=== PATIENT | female | born 1940 | race Caucasian/White ===

== ENCOUNTER 2022-01-23 15:12 | Inpatient (IN) ==
[2022-01-23 16:24] LABS: Basophils # 0.1 K/mcL (0.0-0.2); Basophils % 2.1 %; Eosinophils # 0.3 K/mcL (0.0-0.6); Eosinophils % 4.8 %; Hematocrit 37.1 % (35.3-44.9); Hemoglobin 11.9 g/dL (11.5-15.4); Immature Granulocytes % 0.2 % (0-4); Lymphocytes % 38.9 %; Mean Corpuscular HGB Conc 32.1 g/dL (31.6-35.5); Mean Corpuscular Hemoglobin 32.1 pg (28.0-33.3); Mean Platelet Volume 9.6 fL (9.4-12.4); Monocytes # 0.6 K/mcL (0.0-1.3); Monocytes % 10.9 %; Neutrophils # 2.3 K/mcL (1.6-8.9); Platelet Count 174 K/mcL (140-400); Red Blood Count 3.71 M/mcL (3.82-4.97); Red Cell Distribution Width 13.4 % (11.5-14.5); Segmented Neutrophils % 43.1 %; White Blood Count 5.2 K/mcL (4.3-11.1)
[2022-01-23 16:45] LABS: Calcium 13.8 mg/dL (8.6-10.3); Potassium 3.8 mEq/L (3.5-5.1); Troponin I 0.03 ng/mL (< 0.04)
[2022-01-23] MEDS ORDERED: 0.9 % Sodium Chloride 1,000 ML IVC ONE (17:17)
[2022-01-23 18:32] LABS: Albumin 3.3 g/dL (3.5-5.7); Albumin/Globulin Ratio 0.9 (1.1-2.2); Bilirubin,Direct 0.2 mg/dL (0.0-0.2); Bilirubin,Indirect 0.8 mg/dL (0.0-1.0); Globulin 3.6 g/dL (2.4-3.5); Magnesium 1.6 mg/dL (1.6-2.6); Phosphorous 2.6 mg/dL (2.7-4.5); Thyroid Stimulating Hormone 3.593 mcIU/mL (0.340-5.600); Total Protein 6.9 g/dL (6.4-8.9)
[2022-01-23 18:39] LABS: Bilirubin,Urine Negative (Negative); Blood,Urine Negative (Negative); Clarity,Urine Clear (Clear); Color,Urine Light-Yellow (Yellow); Glucose,Urine (UA) Normal (Normal); Hyaline Casts,Urine Few per lpf (None Seen); Ketones,Urine Negative (Negative); Leukocyte Esterase,Urine Trace (Negative); Mucus,Urine Few per lpf (None-Few); Nitrite,Urine Negative (Negative); PH,Urine 7.5 pH Units (5.0-8.0); Protein,Urine Negative (Neg-Trace); Specific Gravity,Urine 1.012 (1.010-1.025); Squamous Epithelial Cell,Urine Few per hpf (None-Few); Urobilinogen,Urine Normal (Normal)
[2022-01-23] MEDS ORDERED: Ondansetron 4 MG/2 ML VIAL IVP PRN (20:23)
[2022-01-23] MEDS ORDERED: Naloxone 0.4 MG/ML INJ IVP PRN (20:23)
[2022-01-23] MEDS ORDERED: 0.9 % Sodium Chloride 1,000 ML IVC SCH (20:30)
[2022-01-23] MEDS: Pantoprazole 40 MG VIAL IVP SCH (21:50)
[2022-01-23 23:31] LABS: VBG Ionized Calcium 1.68 mmol/L (1.15-1.35)
[2022-01-23 23:45] LABS: Calcium 12.5 mg/dL (8.6-10.3); Potassium 3.5 mEq/L (3.5-5.1)
[2022-01-24] MEDS ORDERED: D5% in Water 1,000 ML IVC PRN (02:53)
[2022-01-24] MEDS ORDERED: Dextrose Gel 15 GM/37.5 ML TUBE PO PRN ×2 (02:53)
[2022-01-24] MEDS ORDERED: *HR* Dextrose 50 % in Water (Syg) 50 ML SYRINGE IVP PRN (02:53)
[2022-01-24] MEDS: Pantoprazole 40 MG VIAL IVP SCH ×2 (05:16→17:20)
[2022-01-24] MEDS: Insulin LISPRO 300 UNITS/3 ML VIAL SUBQ SCH ×3 (05:45→17:17)
[2022-01-24 06:07] LABS: Hematocrit 31.7 % (35.3-44.9); Mean Corpuscular HGB Conc 32.5 g/dL (31.6-35.5); Mean Corpuscular Hemoglobin 32.2 pg (28.0-33.3); Mean Corpuscular Volume 99.1 fL (83.0-100.0); Mean Platelet Volume 9.7 fL (9.4-12.4); Platelet Count 158 K/mcL (140-400); Red Cell Distribution Width 13.2 % (11.5-14.5); White Blood Count 5.5 K/mcL (4.3-11.1)
[2022-01-24 06:16] LABS: Hemoglobin 10.3 g/dL (11.5-15.4)
[2022-01-24 06:57] LABS: Calcium 11.6 mg/dL (8.6-10.3); Potassium 3.7 mEq/L (3.5-5.1)
[2022-01-24] MEDS: Metoprolol XL (24 HR) Succ 25 MG TAB.ER.24H PO SCH (08:23)
[2022-01-24] MEDS: Aspirin Enteric Coated 81 MG Tablet PO SCH (08:24)
[2022-01-24] MEDS: Apixaban 2.5 MG TABLET PO SCH (08:24)
[2022-01-24] MEDS ORDERED: Furosemide 20 MG TABLET PO SCH (09:00)
[2022-01-24] MEDS: Sucralfate 1 GM TABLET PO SCH (20:29)
[2022-01-25] MEDS: Insulin LISPRO 300 UNITS/3 ML VIAL SUBQ SCH ×4 (00:59→18:24)
[2022-01-25 04:49] LABS: Calcium 11.5 mg/dL (8.6-10.3); Potassium 3.4 mEq/L (3.5-5.1)
[2022-01-25] MEDS: Pantoprazole 40 MG VIAL IVP SCH (06:10)
[2022-01-25] MEDS: Sucralfate 1 GM TABLET PO SCH ×2 (07:47→20:02)
[2022-01-25] MEDS: Metoprolol XL (24 HR) Succ 25 MG TAB.ER.24H PO SCH (07:47)
[2022-01-25] MEDS ORDERED: NON-FORMULARY MEDICATION 1 EACH EACH (Esomeprazole Magnesium [Nexium] 40 MG Capsule.Dr) PO SCH (09:00)
[2022-01-25] MEDS ORDERED: Lidocaine -MPF 2% 5 ML VIAL ONE (12:16)
[2022-01-25] MEDS ORDERED: *HR* Propofol 200 MG/20 ML VIAL IVP ONE (12:16)
[2022-01-25] MEDS ORDERED: Simethicone 40 MG/0.6 ML MLS IR ONE (12:18)
[2022-01-25] MEDS ORDERED: Potassium Chloride Elixir 20 MEQ/15 ML UDC PO ONE (13:37)
[2022-01-25] MEDS: Aspirin Enteric Coated 81 MG Tablet PO SCH (14:17)
[2022-01-25 20:50] LABS: Urine Collection Volume NOT PROVIDED mL
[2022-01-26] MEDS: Insulin LISPRO 300 UNITS/3 ML VIAL SUBQ SCH ×3 (00:34→11:13)
[2022-01-26 04:05] LABS: Calcium 11.1 mg/dL (8.6-10.3); Potassium 3.7 mEq/L (3.5-5.1)
[2022-01-26] MEDS: Apixaban 2.5 MG TABLET PO SCH ×2 (09:20→20:17)
[2022-01-26] MEDS: Aspirin Enteric Coated 81 MG Tablet PO SCH (09:20)
[2022-01-26] MEDS: Metoprolol XL (24 HR) Succ 25 MG TAB.ER.24H PO SCH (09:20)
[2022-01-26] MEDS: Sucralfate 1 GM TABLET PO SCH ×2 (09:20→20:17)
[2022-01-26 09:33] LABS: Kappa Qnt Free Light Chains 78.47 mg/L (3.30-19.40); Lambda Qnt Free Light Chains 48.79 mg/L (5.71-26.30)
[2022-01-26] MEDS ORDERED: *HR* HYDROcodone/Acet 5/325 mg TABLET PO PRN (10:58)
[2022-01-26 20:08] VITALS: O2SAT 96
[2022-01-26] MEDS ORDERED: Insulin LISPRO 300 UNITS/3 ML VIAL SUBQ SCH (21:00)
[2022-01-27 05:19] LABS: Calcium 10.7 mg/dL (8.6-10.3); Potassium 3.4 mEq/L (3.5-5.1)
[2022-01-27 06:57] VITALS: BP 148/75; PULSE 85; TEMP 97.1
[2022-01-27] MEDS ORDERED: Insulin LISPRO 300 UNITS/3 ML VIAL SUBQ SCH (07:30)
[2022-01-27] MEDS: Aspirin Enteric Coated 81 MG Tablet PO SCH (08:20)
[2022-01-27] MEDS: Sucralfate 1 GM TABLET PO SCH (08:20)
[2022-01-27] MEDS: Apixaban 2.5 MG TABLET PO SCH (08:21)
[2022-01-27] MEDS: Metoprolol XL (24 HR) Succ 25 MG TAB.ER.24H PO SCH (08:21)
[2022-01-27 09:11] LABS: Influenza A PCR Negative (Negative); Influenza B PCR Negative (Negative); Resp. Syncytial Virus PCR Negative (Negative)
[2022-01-27 09:12] LABS: SARS-CoV-2 by PCR (In House) Negative (Negative)
== END 2022-01-27 14:21 | DRG 640 ==
LOC: EMEROOARM 15:12 → 2NENU 15:12 → SUATTDRO 01-24 13:44
PROVIDERS: ADMIT Internal Medicine; ATTEND Internal Medicine
PROC: ENDOEBX (2022-01-25 14:30)